=== PATIENT | male | born 1980 | race Caucasian/White ===

== ENCOUNTER 2017-03-10 20:32 | Emergency (ER) | payer SELFPAY ==
[2017-03-10] MEDS ORDERED: NO HOME MEDICATION XX (21:00)
== END 2017-03-10 22:06 ==
LOC: EDMED 20:32
DX: R19.00 Intra-abdominal and pelvic swelling, mass and lump, unspecified site (principal); F17.210 Nicotine dependence, cigarettes, uncomplicated